=== PATIENT | female | born 1975 | race Caucasian/White ===

== ENCOUNTER 2019-12-24 23:25 | Emergency (ER) | payer OTHER ==
[~2019-12-24] VITALS: Ht 172.7 cm; Wt 149.7 kg
[2019-12-24 23:43] VITALS: Ht 172.7 cm; Wt 149.7 kg
[2019-12-25 02:21] LABS: BASOPHIL % 0.2 % (0-2); PLATELET COUNT 341 x10^3mcL (130-400); RED CELL DISTRIBUTION WIDTH 20.7 % (11.5-14.5)
[2019-12-25 02:44] LABS: ALBUMIN 3.3 g/dL (3.4-5.0); ALKALINE PHOSPHATASE 102 U/L (46-116); ALT/SGPT 65 U/L (14-59); AST/SGOT 66 U/L (15-37); BILIRUBIN TOTAL 0.4 mg/dL (0.20-1.00); CALCIUM 8.9 mg/dL (8.5-10.1); CARBON DIOXIDE 23.6 mmol/L (21-32); CHLORIDE SERUM 99 mmol/L (98-107); CREATININE SERUM 0.8 mg/dL (0.6-1.0); GFR1 > 60 mL/min; GLUCOSE SERUM 115 mg/dL (74-106); POTASSIUM SERUM 4.7 mmol/L (3.5-5.1); SODIUM SERUM 130 mmol/L (136-145); TOTAL PROTEIN, SERUM 7.9 g/dL (6.4-8.2)
[2019-12-25 05:39] LABS: AMPHETAMINE QUAL UR NONE DETECTED (See below)
[2019-12-25 05:40] LABS: microscopic required? YES
[2019-12-25 05:41] LABS: urine erythrocyte 1+ (NEGATIVE)
[2019-12-25 06:42] LABS: BASOPHIL % 0.2 % (0-2); PLATELET COUNT 333 x10^3mcL (130-400)
[2019-12-25 06:53] LABS: RED CELL DISTRIBUTION WIDTH 20.6 % (11.5-14.5)
[2019-12-25 16:20] VITALS: BP 155/94
== END 2019-12-25 16:32 | disposition short-term general hospital (02) ==
LOC: EDBD 23:25 → ED 23:25
PROVIDERS: Specialist
DX: R46.89 Other symptoms and signs involving appearance and behavior (principal); R45.1 Restlessness and agitation
CPT/HCPCS: G0480; J0515; J2060; J3486; Q0092